=== PATIENT | female | born 1985 | race Caucasian/White ===

== ENCOUNTER 2020-05-21 09:48 | Emergency (ER) | payer SELFPAY ==
[2020-05-21] MEDS ORDERED: Sodium Chloride 0.9% 1,000 ML ONE (10:20)
[2020-05-21 10:32] LABS: #Eosinphils 0.2 thou/uL (0.0-0.7); #Lymphocytes 1.9 thou/uL (1.20-3.40); #Monocytes 0.4 thou/uL (0.11-0.59); #Neutrophils 4.5 thou/uL (1.40-6.50); %Basophils 0.6 % (0.0-1.0); %Eosinophils 2.2 % (0.0-10.0); %Lymphocytes 26.5 % (21.0-51.0); %Monocytes 5.9 % (0.0-10.0); %Neutrophils 64.8 % (42.0-75.0); Hemoglobin 15.3 g/dL (12.0-16.0); Mean Corpuscular HGB CONC 31.2 g/dL (32.0-36.0); Mean Corpuscular Hemoglobin 29.6 pg (27.0-31.0); Mean Platelet Volume 6.4 fL (7.4-10.4); Platelet Count 380 thou/uL (130-400); RBC Distribution Width 11.9 % (11.5-14.5); Red Blood Cell (RBC) Count 5.17 mill/uL (4.20-5.40)
[2020-05-21 10:37] LABS: BHCG - Serum Negative (NEGATIVE); Pregs Control Background? CLEAR/WHITE (CLR/WHITE); Pregs Control Bar Appear? YES (CONTROL BAR)
[2020-05-21] MEDS ORDERED: Ondansetron PF 4 MG/2 ML Vial ONE (11:45)
--- NOTE | 2020-05-21 12:28 | ULT ---
TRANSABDOMINAL AND TRANSVAGINAL PELVIC ULTRASOUND: Date: 05/21/2020 INDICATION: History of pelvic pain with heavy menstrual bleeding. COMPARISON: None. FINDINGS: Uterus measures 8.1 x 5.3 x 3.4 cm, with an endometrial stripe of 4.5 mm. Left ovary measures 2.4 x 1.2 x 1.3 cm. Right ovary measures 2.6 x 2.4 x 2.0 cm. There is normal blood flow to both ovaries. No free fluid is evident. IMPRESSION: No acute abnormality seen within the pelvis. POS: [facility]
== END 2020-05-21 12:04 | disposition home or self-care (01) ==
LOC: MADERS 09:48
DX: N94.6 Dysmenorrhea, unspecified (principal)
CPT/HCPCS: 76856; 84703; 85025; 87491; 87591; 96374; J2405; J7050